=== PATIENT | female | born 1935 | race Caucasian/White ===

== ENCOUNTER 2017-11-16 08:53 | Day surgery (SDC) | payer OTHER ==
[~2017-11-16] VITALS: Ht 152.4 cm; Wt 88.6 kg
[2017-11-16 09:32] VITALS: BP 175/76; PULSE 75; RESP 20; TEMP 98.4; O2SAT 94
[2017-11-16] MEDS ORDERED: FURO40TA PO (09:33)
[2017-11-16] MEDS ORDERED: ROPI1TAB PO (09:40)
[2017-11-16] MEDS ORDERED: ASPI1CHW4 CHEW (09:40)
[2017-11-16] MEDS ORDERED: IPRASOL INH (09:40)
[2017-11-16] MEDS ORDERED: OMEP20TA93 PO (09:40)
[2017-11-16] MEDS ORDERED: ALLO100T PO (09:40)
[2017-11-16] MEDS ORDERED: FIBE625T PO (09:40)
[2017-11-16] MEDS ORDERED: CLAR10CA3 PO (09:40)
[2017-11-16] MEDS ORDERED: METO1TAB42 PO (09:40)
[2017-11-16] MEDS ORDERED: SYMB160A INH (09:40)
[2017-11-16] MEDS ORDERED: PRAV40TA2 PO (09:40)
[2017-11-16] MEDS ORDERED: LOSA100T PO (09:40)
[2017-11-16] MEDS ORDERED: TRAM50TA PO (09:40)
[2017-11-16] MEDS ORDERED: GLIP1TAB60 PO (09:40)
[2017-11-16] MEDS ORDERED: LACTCAP8 PO (09:40)
[2017-11-16] MEDS ORDERED: CENTCHW4 CHEW (09:40)
[2017-11-16] MEDS ORDERED: FERR15DR9 PO (09:40)
[2017-11-16] MEDS ORDERED: VITA100052 PO (09:40)
[2017-11-16 10:24] LABS: AUTOMATED NEUTROPHIL # 3.8 TH/MM3 (1.8-7.7); BASOPHIL # 0.1 TH/MM3 (0-0.2); BASOPHIL % 1.2 % (0.0-2.0); EOSINOPHIL # 0.9 TH/MM3 (0-0.4); EOSINOPHIL % 11.9 % (0.0-4.0); HEMATOCRIT 35.2 % (35.0-46.0); HEMOGLOBIN 11.6 GM/DL (11.6-15.3); LYMPH % 25.3 % (9.0-44.0); LYMPHOCYTE # 1.9 TH/MM3 (1.0-4.8); MEAN CELL VOLUME 96.4 FL (80.0-100.0); MEAN CORPUSCULAR HEMOGLOBIN 31.9 PG (27.0-34.0); MEAN CORPUSCULAR HGB CONC 33.1 % (32.0-36.0); MEAN PLATELET VOLUME 9.1 FL (7.0-11.0); MONO % 9.6 % (0.0-8.0); MONOCYTE # 0.7 TH/MM3 (0-0.9); PLATELET COUNT 294 TH/MM3 (150-450); RED BLOOD COUNT 3.65 MIL/MM3 (4.00-5.30); RED CELL DISTRIBUTION WIDTH 16.3 % (11.6-17.2); WHITE BLOOD COUNT 7.3 TH/MM3 (4.0-11.0)
[2017-11-16] MEDS ORDERED: LIDOCAINE 1%/EPINEPHrine 1:100,000 SOLN 50 ML VIAL ONE (10:42)
[2017-11-16] MEDS ORDERED: MIDAZOLAM HCL 2 MG/2 ML VIAL ONE (11:03)
--- NOTE | 2017-11-16 11:43 | PD.RAD ---
Post CT Procedure Prog Note Procedure Date: Nov 16, 2017 Supervising Radiologist: Paulo David Anesthesia: Conscious Sedation Plan of Activity Patient to Unit: [facility] Patient Condition: Good See PACS Report for procedural detail/treatment Paulo David MD Nov 16, 2017 11:43
[2017-11-16 11:57] VITALS: BP 142/75; PULSE 72; RESP 18; TEMP 98.4; O2SAT 95
[2017-11-16 12:27] VITALS: BP 152/72; PULSE 77; RESP 17; O2SAT 94
[2017-11-16] MEDS ORDERED: SODIUM CHLOR 0.9% 1000 ML IV SCH (12:30)
--- NOTE | 2017-11-16 12:44 | RADRPT ---
EXAM DATE/TIME: 11/16/2017 11:18 [place] COMPARISON: No previous studies available for comparison. INDICATIONS : Possible multiple myeloma SEDATION TIME: 30 minutes BIOPSY SITE: Right ilium MEDICATION(S): 1.) 2 mg midazolam (Versed) IV 2.) 150 mcg fentanyl (Sublimaze) IV DEVICE(S): 1.) 11 gauge On-Control needle MEDICAL HISTORY : Chronic obstructive pulmonary disease. Diabetes mellitus type 2. SURGICAL HISTORY : Hysterectomy. Tonsillectomy. ENCOUNTER: Initial ACUITY: 1 day PAIN SCORE: 0/10 LOCATION: back A total of one core specimen(s) were obtained and sent to the laboratory for pathologic evaluation. PROCEDURE: 1. CT guided bone marrow biopsy. Prior to the procedure informed consent was obtained. Any appropriate prior imaging studies were rev iewed. Using automated exposure control and adjustment of the mA and/or kV according to patient size , radiation dose was kept as low as reasonably achievable to obtain optimal diagnostic quality images . DICOM format image data is available electronically for review and comparison. The site was prepped in a sterile fashion. Full sterile technique was used, including cap, mask, heidi rile gloves and gown and a large sterile sheet. Hand hygiene and 2% chlorhexidine and/or betadine/al cohol prep was utilized per protocol for cutaneous antisepsis. The skin and subcutaneous tissues wer e infiltrated with local anesthetic solution. With CT guidance the previously identified target was localized. Biopsy was performed using the presc ribed needle as above. Following biopsy marrow aspiration was performed with repeat puncture. Adequa te hemostasis was obtained with compression at the puncture site. Follow-up CT scan reveals no hemorrhage. Conscious sedation was performed with the prescribed dosages and duration as above in the presence of an independent trained radiology nurse to assist in the monitoring of the patient. EKG and oximetry remained stable throughout the procedure. The patient tolerated the procedure well and there were no complications. The patient was sent to Radiology Outpatient Unit in stable condition. CONCLUSION: 1. Uncomplicated CT guided bone marrow aspirate. 2. Uncomplicated CT guided bone marrow biopsy. Paulo David MD on November 16, 2017 at 12:42 Board Certified Radiologist. This report was verified electronically.
[2017-11-16 12:57] VITALS: BP 158/64; PULSE 68; RESP 18; O2SAT 95
== END 2017-11-16 14:30 | disposition home or self-care (01) ==
LOC: HRAD 08:53 → HRIP 08:54 → HRAD 14:30
PROVIDERS: ATTEND Internal Medicine
DX: D47.2 Monoclonal gammopathy (principal); J44.9 Chronic obstructive pulmonary disease, unspecified; E11.9 Type 2 diabetes mellitus without complications; C90.00 Multiple myeloma not having achieved remission; Z79.84 Long term (current) use of oral hypoglycemic drugs
CPT/HCPCS: 38222; 77012; 85025; 85097; 88184; 88185; 88237; 88264; 88280; 88305; 88311; 88313; 88341; 88342; 99152; 99153; C1830; J2250; J3010; J7030